=== PATIENT | female | born 1995 | race Two or more races ===

== ENCOUNTER 2018-06-19 16:52 | Outpatient (CLI) | payer OTHER ==
--- NOTE | 2018-06-19 17:27 | RAD ---
KUB: 06/19/18 INDICATION: Hematuria. COMPARISON: None. FINDINGS: No suspicious calcifications evident. Bowel gas pattern is unobstructed. Small phleboliths seen withi n the lower pelvis. No acute osseous abnormality is evident. IMPRESSION: No suspicious calcification is seen along the renal shadows or expected course of the renal collectin g system. Small phleboliths seen within the lower pelvis. Bowel gas pattern is unobstructed. POS: KRISTINE
== END 2018-06-19 16:53 | disposition home or self-care (01) ==
LOC: RAD 16:52
DX: R31.9 Hematuria, unspecified (principal); I87.8 Other specified disorders of veins
CPT/HCPCS: 74018; 81003; 87086

== ENCOUNTER 2019-05-15 23:01 | Emergency (ER) | payer BC, OTHER ==
[2019-05-15] MEDS ORDERED: Ondansetron ODT 4 MG TAB ONE (23:40)
[2019-05-15] MEDS ORDERED: Morphine 4 MG/ML VIAL ONE (23:52)
[2019-05-15] MEDS ORDERED: Ondansetron PF 4 MG/2 ML Vial ONE (23:52)
[2019-05-16 00:23] LABS: #Basophils 0.1 thou/uL (0.0-0.2); #Eosinphils 0.2 thou/uL (0.0-0.7); #Lymphocytes 3.1 thou/uL (1.20-3.40); #Monocytes 0.6 thou/uL (0.11-0.59); #Neutrophils 5.4 thou/uL (1.40-6.50); %Basophils 0.6 % (0.0-1.0); %Eosinophils 1.8 % (0.0-10.0); %Lymphocytes 33.3 % (21.0-51.0); %Monocytes 6.6 % (0.0-10.0); %Neutrophils 57.6 % (42.0-75.0); Hemoglobin 14.6 g/dL (12.0-16.0); Mean Corpuscular HGB CONC 35.5 g/dL (32.0-36.0); Mean Corpuscular Hemoglobin 31.4 pg (27.0-31.0); Mean Corpuscular Volume 88.2 fL (78.0-98.0); Mean Platelet Volume 7.8 fL (7.4-10.4); Platelet Count 314 thou/uL (130-400); RBC Distribution Width 11.2 % (11.5-14.5); Red Blood Cell (RBC) Count 4.67 mill/uL (4.20-5.40); White Blood Cell (WBC) Count 9.4 thou/uL (4.8-10.8)
[2019-05-16] MEDS ORDERED: Morphine 4 MG/ML VIAL ONE (00:27)
[2019-05-16 00:33] LABS: ALT (SGPT) 12 U/L (8-55); AST (SGOT) 17 U/L (5-34); Albumin 4.7 g/dL (3.5-5.0); Alkaline Phosphatase 52 U/L (40-110); Anion Gap 15 mmol/L (10-20); BUN (Urea Nitrogen) 11 mg/dL (7.0-18.7); Bilirubin, Total 1.7 mg/dL (0.2-1.2); Calc. Creatinine Clearance 0 mL/min (70-130); Calcium 9.8 mg/dL (7.8-10.44); Carbon Dioxide 23 mmol/L (22-29); Chloride 106 mmol/L (98-107); Estimated GFR-MDRD 69; Globulin 3.2 g/dL (2.4-3.5); Glucose 99 mg/dL (70-105); Potassium 4.1 mmol/L (3.5-5.1); Protein, Total 7.9 g/dL (6.0-8.3); Sodium 140 mmol/L (136-145)
[2019-05-16 01:13] LABS: Bilirubin Small (Negative); Blood, Urine Large (Negative); Glucose, Urine (Dipstick) Negative (Negative); Leukocyte Negative (Negative); Nitrite Negative (Negative); Protein, Urine (Dipstick) 30 mg/dL (Neg-Trace); Urobilinogen 0.2 mg/dL (Less than 2)
[2019-05-16 01:19] LABS: Clarity Cloudy (Clear)
[2019-05-16 01:20] LABS: Pregnancy Test - Urine (BHCG) Negative (Negative); Pregu Control Background? CLEAR/WHITE (CLR/WHITE); Pregu Control Bar Appear? YES (CONTROL BAR); Specific Gravity 1.025 (1.002-1.036)
[2019-05-16 01:21] LABS: Squamous Epithelial 0-3 HPF (0-3)
[2019-05-16 01:22] LABS: Bacteria/HPF 1+ HPF (None Seen); Renal Epithelial None Seen HPF (None Seen); Transitional Epithelial None Seen HPF (None Seen)
[2019-05-16] MEDS ORDERED: Ketorolac Tromethamine 30 MG/ML VIAL ONE (01:45)
[2019-05-16] MEDS ORDERED: HYDROcodone/Acetaminophen 5/325 mg Tablet ONE (02:56)
--- NOTE | 2019-05-16 08:28 | CT ---
CT OF THE AD AND PELVIS WITHOUT IV CONTRAST: INDICATION: History of right-sided flank pain. COMPARISON: None. FINDINGS: There is mild right hydronephrosis and edematous changes of the right kidney. There is mild right hy droureter. There is a 1.7 cm calculus at the right UVJ. There is a 1.5 mm calculus involving the in ferior pole of the right kidney. The left kidney is normal-appearing. Lung bases are clear. The unopacified liver, pancreas, spleen, and adrenal glands are normal-appearing. There is a normal appendix in the right lower quadrant. Bladder is partially decompressed. Reproductive structures and unopacified large and small bowel reveal no definite acute abnormality. No acute osseous abnormality is evident. IMPRESSION: 1. A 1.7 mm right ureterovesical junction calculus with mild right hydronephrosis. 2. Right nephrolithiasis. POS: BH
== END 2019-05-16 03:10 | disposition home or self-care (01) ==
LOC: ERS 23:01
DX: N13.2 Hydronephrosis with renal and ureteral calculous obstruction (principal); F41.9 Anxiety disorder, unspecified; F32.9 Major depressive disorder, single episode, unspecified; Z79.899 Other long term (current) drug therapy
CPT/HCPCS: 74176; 80053; 81003; 81015; 81025; 85025; 96361; 96374; 96375; J1885; J2270; J2405; Q0162

== ENCOUNTER 2021-03-20 16:47 | Emergency (ER) | payer BC ==
[2021-03-20] MEDS ORDERED: Morphine 4 MG/ML VIAL ONE ×3 (17:10→21:07)
[2021-03-20] MEDS ORDERED: Ketorolac Tromethamine 30 MG/ML VIAL ONE (17:16)
[2021-03-20] MEDS ORDERED: Ondansetron PF 4 MG/2 ML Vial ONE (17:16)
[2021-03-20 17:35] LABS: #Basophils 0.1 thou/uL (0.0-0.2); #Eosinphils 0.2 thou/uL (0.0-0.7); #Lymphocytes 2.8 thou/uL (1.20-3.40); #Monocytes 0.7 thou/uL (0.11-0.59); #Neutrophils 5.3 thou/uL (1.40-6.50); %Basophils 0.6 % (0.0-1.0); %Eosinophils 1.7 % (0.0-10.0); %Lymphocytes 30.9 % (21.0-51.0); %Monocytes 7.5 % (0.0-10.0); %Neutrophils 59.3 % (42.0-75.0); Mean Corpuscular Hemoglobin 30.3 pg (27.0-31.0); Mean Corpuscular Volume 86.5 fL (78.0-98.0); Mean Platelet Volume 7.6 fL (7.4-10.4); Platelet Count 328 thou/uL (130-400); RBC Distribution Width 11.3 % (11.5-14.5); Red Blood Cell (RBC) Count 4.63 mill/uL (4.20-5.40); White Blood Cell (WBC) Count 8.9 thou/uL (4.8-10.8)
[2021-03-20 17:44] LABS: BHCG - Serum Negative (NEGATIVE); Pregs Control Background? CLEAR/WHITE (CLR/WHITE); Pregs Control Bar Appear? YES (CONTROL BAR)
[2021-03-20 17:50] LABS: ALT (SGPT) 32 U/L (8-55); AST (SGOT) 23 U/L (5-34); Albumin 4.5 g/dL (3.5-5.0); Alkaline Phosphatase 60 U/L (40-110); Anion Gap 14 mmol/L (10-20); BUN (Urea Nitrogen) 10 mg/dL (7.0-18.7); Bilirubin, Total 0.9 mg/dL (0.2-1.2); Calc. Creatinine Clearance 0 mL/min (70-130); Calcium 9.9 mg/dL (7.8-10.44); Carbon Dioxide 23 mmol/L (22-29); Chloride 104 mmol/L (98-107); Globulin 3.2 g/dL (2.4-3.5); Glucose 96 mg/dL (70-105); Potassium 3.9 mmol/L (3.5-5.1); Protein, Total 7.7 g/dL (6.0-8.3); Sodium 137 mmol/L (136-145)
[2021-03-20 17:54] LABS: Bacteria/HPF 4+ HPF (None Seen); WBC/HPF 0-3 HPF (0-3)
[2021-03-20 17:57] LABS: Bilirubin Negative (Negative); Blood, Urine Moderate (Negative); Glucose, Urine (Dipstick) Negative (Negative); Ketone, Urine Negative (Negative); Leukocyte Negative (Negative); Nitrite Negative (Negative); Protein, Urine (Dipstick) Negative (Neg-Trace); Urobilinogen 0.2 mg/dL (Less than 2); pH, Urine 7.5 (5.0-9.0)
[2021-03-20 17:59] LABS: Clarity Hazy (Clear)
[2021-03-20 18:03] LABS: Pregnancy Test - Urine (BHCG) Negative (Negative); Pregu Control Background? CLEAR/WHITE (CLR/WHITE); Pregu Control Bar Appear? YES (CONTROL BAR)
== END 2021-03-20 21:22 | disposition home or self-care (01) ==
LOC: ERS 16:47
DX: N20.1 Calculus of ureter (principal); I10 Essential (primary) hypertension; E78.5 Hyperlipidemia, unspecified; E78.00 Pure hypercholesterolemia, unspecified; F17.290 Nicotine dependence, other tobacco product, uncomplicated; Z79.899 Other long term (current) drug therapy
CPT/HCPCS: 74176; 80053; 81003; 81015; 81025; 84703; 85025; 87086; 96374; 96375; 96376; J1885; J2270; J2405